=== PATIENT | female | born 1955 ===

== ENCOUNTER 2022-06-11 22:58 | Emergency (ER) | payer BC, OTHER ==
[2022-06-11] MEDS ORDERED: Acetaminophen 500 MG Tab ONE (23:44)
== END 2022-06-12 00:30 | disposition home or self-care (01) ==
LOC: VM.ED 22:58
DX: S06.0X9A Concussion with loss of consciousness of unspecified duration, initial encounter (principal); Z88.0 Allergy status to penicillin; Z79.899 Other long term (current) drug therapy
CPT/HCPCS: 70450; 73090-RT; 99283; 99284; A9270-GY